=== PATIENT | female | born 1945 | race Caucasian/White ===

== ENCOUNTER → 2021-01-23 09:24 | Outpatient (BNVA) | payer MEDICARE, OTHER, SELFPAY | PROVIDERS: Referring Provider Family Medicine; Visit Provider Orthopaedic Surgery | DX: Z20.822 Contact with and (suspected) exposure to COVID-19 (principal); Z01.812 Encounter for preprocedural laboratory examination | CPT/HCPCS: 87635 ==

== ENCOUNTER 2021-01-28 12:31 | Day surgery (SDC) | payer MEDICARE, OTHER, SELFPAY ==
[2021-01-25 16:59] VITALS: BMI 23.3
[2021-01-28] VITALS (10 sets, daily range): BP systolic 179–186; BP diastolic 70–92; PULSE 68–95; RESP 14–18; TEMP 36.6–37.1; O2SAT 93–98
--- NOTE | 2021-01-28 | SCC_ITS ---
Procedure Done: Open reduction internal fixation left patella 19.3 seconds of fluoroscopic guidance, for a cumulative dose of 0.31 mGy, was provided to Dr. Foster by the radiology department. C-arm images of the LEFT patella were saved for the patient's permanent record. CRISSY
--- NOTE | 2021-01-28 13:51 | ECG_ITS ---
[facility] Test Date: 2021-01-28 Pat Name: Urvashi Watson Department: Room: Gender: Female Cath Laboratory Technician: : 1945 Requested By: Eugenio Olvera Order Number: [id number] Yanna MD: Mina Wen M.D. Measurements Intervals [place] Rate: 64 P: 30 CT: 127 QRS: 7 QRSD: 90 T: 37 QT: 426 QTc: 441 Interpretive Statements SINUS RHYTHM No previous ECG available for comparison Electronically Signed On 01-30-2021 0:16:58 FLIGHT CONTROL TOWER OPERATOR by Mina Wen M.D. [id number]
--- NOTE | 2021-01-28 13:57 | ANES.PREANE2 ---
Pre-Anesthetic Assessment Pre-Anesthetic Assessment: Height/Weight: Height 1.65 m Weight 63.503 kg Temp Pulse Resp BP Pulse Ox 97.9 F 68 18 184/92 97 01/28/21 13:22 01/28/21 13:22 01/28/21 13:22 01/28/21 13:22 01/28/21 13:22 Proposed Procedure: Operation Date: 01/28/21 14:05 Proposed Procedures p ORIF Patella 38607 S82.002A(Left) - Terrence Foster MD Was Beta Marisol taken within 24 hours: Yes Was Clonidine taken within 24 hours: N/A Last intake: Intake Last Liquid Date 01/28/21 Last Liquid Time 08:00 Last Solid Date 01/27/21 Last Solid Time 19:00 Social: Social History: No alcohol and No tobacco Exam: Pre-Anes Outpt Exam: alert, oriented x 3, clear to auscultation bilaterally and regular rate & rhythm Airway: Submandibular: WNL Cervical ROM: WNL MP: 2 Dentition: Full CV/HEM: CV/HEM: HTN Metabolic: Metabolic: DM and Hyperlipidemia Neuropsych: Neuropsych: Anxiety, Depression and TIA Anesthetic Plan: ASA status: 3 Anesthesia: General Other: PONV Risk of > 500 ml blood loss (7ml/kg in children): No PFSH Anesthesia PFSH: Social History Smoking and tobacco status: never smoked Alcohol intake: never Data Anesthesia Cardiac Studies: No Data to Display
[2021-01-28 14:01] LABS: Glucose Point of Care 249 mg/dL (70-110)
[2021-01-28] MEDS: scopolamine 1.5 Patch 1 PATCH TRANSDERMA (14:05)
[2021-01-28] MEDS: ondansetron 2 mg/ML SDV 2 mL 4 MG IVP ×2 (14:05→17:56)
[2021-01-28] MEDS: sodium chloride 0.9% 1,000 ML 30 ML IV (14:14)
[2021-01-28] MEDS: HYDROmorphone 1 mg/mL INJ 1 mL 0.5 MG IVP (14:15)
--- NOTE | 2021-01-28 15:51 | W.PM.OPSUD ---
Surgery/Procedure H&P Update DATE OF PROCEDURE: January 28, 2021 DATE H&P PERFORMED: 01/23/21 H&P UPDATE INFORMATION: I have reviewed H&P completed within last 30 days PREOP DIAGNOSIS: Fracture left patella PLANNED PROCEDURE: Operation Date: 01/28/21 14:05 Proposed Procedures p ORIF Patella 13183 S82.002A(Left) - Terrence Foster MD
--- NOTE | 2021-01-28 17:17 | P.OP_ITS ---
Operative Report Date of procedure: January 28, 2021 Pre-op Diagnosis: Fracture left patella Post-op diagnosis: same Post-op Findings: Same Procedure Done: Open reduction internal fixation left patella Implants: [place] 4.0mm canulated screws, 34 and 36mm Pathology: none sent Anesthesia: General Estimated blood loss (mL): 20 Complications: None Findings: The patient had a transverse fracture of the left patella Condition: stable Disposition: PACU Procedure: Urvashi was taken to the operating room and given 2 g of Ancef. She was prepped and draped in the supine position with her left leg covered with Ioban anteriorly. She had a small central scar over the patella so the incision was moved slightly laterally and made approximately 5 cm in length. The displaced patellar fracture was identified. Hematoma was moved from the fracture site. A reduction clamp was used to reduce the patella. 2 guide pins were placed from proximal to distal across the patella and a 36 and 34 mm 4.0 cannulated screw passed over each pin. A 5 FiberWire was then passed through each cannulated screw. It was passed in a crisscross fashion over the anterior patella and tightly secured performing the tension band. Next a 2 Artrhex Fiberforce suture was sutured circumferentially around the patella. The knee was brought through range of motion and the repair found to be stable. Deep tissues were closed with 2-0 Vicryl. The skin was closed with skin anastasiia. The anterior incision was covered with Xeroform and 4 x 4's. The leg was covered in compressive web roll and Cezar wrap and placed in a long knee immobilizer in extension. She was extubated taken to her room in stable con dition.
--- NOTE | 2021-01-28 17:25 | XR_ITS ---
WS: [id number] XR patella LT 1-2V 66109 REASON FOR EXAM: ORIF FRACTURE FINDINGS: Vertical screw fixation of transverse patellar fracture. Surgical appliances and fracture fragments appear in proper position and alignment. XR/XR patella LT 1-2V 31183 IMPRESSION: Fixation of patellar fracture with no abnormality.
--- NOTE | 2021-01-28 17:26 | P.PCN_ITS ---
Documented by User: Robson Bhagat CRNA 01/28/21 17:26 PACU note PACU note: VSS, Good respiratory effort, report to ETHYLENE PLANT OPERATOR Post-Anesthesia Exam: awake
--- NOTE | 2021-01-28 17:26 | PM.PACU ---
Documented by User: Robson Bhagat CRNA 01/28/21 17:26 PACU note PACU note: VSS, Good respiratory effort, report to RESEARCH DAIRY FARM SUPERVISOR Post-Anesthesia Exam: awake
[2021-01-28] MEDS: diphenhydrAMINE 50 mg/mL SDV 1mL 12.5 MG IVP (18:29)
--- NOTE | 2021-01-28 18:29 | SUR.PHASEII ---
RE MEDICATED FOR NAUSEA.
--- NOTE | 2021-01-28 18:38 | ANE.PACU2 ---
Inpatient post-anesthesia follow up: Airway intact: Yes Vital signs: Temperature 97.9 F Pulse Rate 87 Respiratory Rate 14 Blood Pressure 179/81 Pulse Oximetry 95 Oxygen Delivery Me thod Room Air Oxygen Flow Rate 10 Fraction of Inspir ed Oxygen Hydration adequate: Yes Nausea and vomiting: Yes Pain level: 2 Mental status: Baseline
--- NOTE | 2021-01-28 18:51 | SUR.PHASEII ---
RE EVALUATED BY DOCTOR SHAY. MODERATE RELIEF OF NAUSEA.
== END 2021-01-28 19:44 | disposition home or self-care (01) ==
PROVIDERS: PCP Internal Medicine Rheumatology; Visit Provider Orthopaedic Surgery
PROC: (CPT 27524; principal; 2021-01-28 13:55)
DX: S82.002A Unspecified fracture of left patella, initial encounter for closed fracture (principal); X58.XXXA Exposure to other specified factors, initial encounter; I10 Essential (primary) hypertension; E11.9 Type 2 diabetes mellitus without complications; E78.5 Hyperlipidemia, unspecified; F41.9 Anxiety disorder, unspecified; F32.9 Major depressive disorder, single episode, unspecified; Z86.73 Personal history of transient ischemic attack (TIA), and cerebral infarction without residual deficits
CPT/HCPCS: 27524; 36416; 73560; 76000; 82962; 93005; 96374; 96375; C1713; J0360; J0690; J1170; J1200; J2405; J2704; J3010; J3490; J7030

== ENCOUNTER → 2021-02-27 10:08 | Outpatient (BNVA) | payer MEDICARE, OTHER, SELFPAY | PROVIDERS: PCP Internal Medicine Rheumatology; Visit Provider Orthopaedic Surgery | DX: Z98.890 Other specified postprocedural states (principal) | CPT/HCPCS: 73560 ==

== ENCOUNTER → 2021-03-26 11:37 | Outpatient (BNVA) | payer MEDICARE, OTHER, SELFPAY | PROVIDERS: PCP Internal Medicine Rheumatology; Visit Provider Orthopaedic Surgery | DX: Z98.890 Other specified postprocedural states (principal) | CPT/HCPCS: 73560 ==

== ENCOUNTER 2021-04-25 06:00 | Outpatient (RCR) | payer MEDICARE, OTHER, SELFPAY | END 2021-05-16 23:59 | disposition home or self-care (01) | LOC: MPT 06:00 | PROVIDERS: Referring Provider Orthopaedic Surgery; Visit Provider Orthopaedic Surgery | DX: S82.002D Unspecified fracture of left patella, subsequent encounter for closed fracture with routine healing (principal); X58.XXXD Exposure to other specified factors, subsequent encounter | CPT/HCPCS: 97110; 97161 ==

== ENCOUNTER 2021-05-17 06:00 | Outpatient (RCR) | payer MEDICARE, OTHER, SELFPAY | END 2021-06-15 23:59 | disposition home or self-care (01) | LOC: MPT 06:00 | PROVIDERS: Referring Provider Orthopaedic Surgery; Visit Provider Orthopaedic Surgery | DX: S82.002D Unspecified fracture of left patella, subsequent encounter for closed fracture with routine healing (principal); X58.XXXD Exposure to other specified factors, subsequent encounter | CPT/HCPCS: 97110 ==

== ENCOUNTER → 2022-04-09 10:46 | Outpatient (BNVA) | payer MEDICARE, OTHER, SELFPAY | PROVIDERS: Visit Provider Orthopaedic Surgery | DX: Z98.890 Other specified postprocedural states (principal); M25.562 Pain in left knee; M54.16 Radiculopathy, lumbar region | CPT/HCPCS: 73560; 73565; 99213 ==

== ENCOUNTER → 2022-05-20 07:55 | Outpatient (BNVA) | payer MEDICARE, OTHER, SELFPAY | PROVIDERS: Visit Provider Physician Assistant | DX: M54.16 Radiculopathy, lumbar region (principal); M21.371 Foot drop, right foot | CPT/HCPCS: 72110; 99203 ==

== ENCOUNTER 2022-05-26 08:00 | Outpatient (CLI) | payer MEDICARE, OTHER, SELFPAY ==
--- NOTE | 2022-05-26 08:00 | MR_ITS ---
WS: [id number] MRI LUMBAR SPINE NONCONTRAST HISTORY: Right side foot drop COMPARISON: 09/09/2021 TECHNIQUE: Sagittal and axial multisequence imaging is submitted. The same numbering pattern of the vertebral bodies used on the prior MRI lumbar spine of 09/09/2021 vi ews today. Advanced degenerative changes in the cervical spine with mild encroachment on the central canal begin nevaeh at C4-C7. Additional facet disease in the mid to lower thoracic spine. No cord compression. Straightening of the normal lumbar lordosis. Mild curvature lumbar spine. L3 anterolisthesis by 4.3 mm. L4 anterolisthesis by 2.3 mm. Disc disease and the anterolisthesis has increased since the prior study. No fractures or marrow edema. Conus terminates normally at L1. L1-L2: Mild annular disc bulging and facet arthritis. Mild bilateral foraminal stenosis. No change. L2-L3: Marked annular disc bulging with marked ligamentum flavum and facet arthritis. Near complete e ffacement of CSF. Near complete effacement of fat in the LEFT foramen. Severe central, bilateral suba rticular recess and LEFT foraminal stenosis. Moderate RIGHT foraminal stenosis. Very similar to the p rior study. L3-L4: Marked annular disc bulging with severe ligamentum flavum and facet arthritis. Complete efface ment of fat in the RIGHT foramen. Severe RIGHT foraminal stenosis and moderate on the LEFT. Severe ce ntral and subarticular recess stenosis. Similar to the prior study. L4-L5: Marked annular disc bulging and ligamentum flavum and facet arthritis. Complete effacement of fat RIGHT foramen. Severe central, bilateral subarticular recess stenosis and RIGHT foraminal stenosi s. Moderate LEFT foraminal stenosis. Similar to the prior study. L5-S1: Mild disc bulging. Small central and LEFT foraminal disc protrusions. There is small disc prot rusion contacting the LEFT S1 nerve root. Similar to the prior study. Moderate central stenosis. Mild bilateral subarticular recess and foraminal stenosis. Most significant contact on the LEFT S1 nerve root. Paravertebral soft tissues are normal. MR/MR lumbar spine wo con* [id number] IMPRESSION: 1. Multilevel central and foraminal disc stenoses. 2. Mild anterolisthesis of L3 and L4 with mild progression since 09/09/2021. 3. Severe central, bilateral subarticular recess and LEFT foraminal stenosis a t L2-3. Moderate RIGHT foraminal stenosis. 4. Severe central, bilateral subarticular recess and RIGHT foraminal stenosis at L3-4. 5. Severe central, bilateral subarticular recess and RIGHT foraminal stenosis at L4-5 with moderate LEFT foraminal stenosis. 6. Moderate central stenosis at L5-S1. Mild bilateral subarticular recess and foraminal stenosis. There is a disc protrusion contacting the LEFT S1 nerve marie t which is unchanged.
== END 2022-05-26 08:01 | disposition home or self-care (01) ==
LOC: RAD 08:03
PROVIDERS: Visit Provider Physician Assistant
DX: M21.371 Foot drop, right foot (principal); M54.16 Radiculopathy, lumbar region; M43.16 Spondylolisthesis, lumbar region; M48.061 Spinal stenosis, lumbar region without neurogenic claudication
CPT/HCPCS: 72148

== ENCOUNTER → 2022-05-27 14:23 | Outpatient (BNVA) | payer MEDICARE, OTHER, SELFPAY | PROVIDERS: Visit Provider Physician Assistant | DX: M48.062 Spinal stenosis, lumbar region with neurogenic claudication (principal); M21.371 Foot drop, right foot; M54.16 Radiculopathy, lumbar region | CPT/HCPCS: 99213 ==

== ENCOUNTER 2022-06-06 13:15 | Outpatient (CLI) | payer MEDICARE, OTHER, SELFPAY | END 2022-06-06 13:16 | disposition home or self-care (01) | LOC: RT 06-25 13:16 | PROVIDERS: Visit Provider Orthopaedic Surgery | DX: Z01.818 Encounter for other preprocedural examination (principal) | CPT/HCPCS: 93005 ==

== ENCOUNTER 2022-06-13 05:49 | Day surgery (SDC) | payer MEDICARE, OTHER, SELFPAY ==
--- NOTE | 2022-06-06 09:56 | ANES.PREANE2 ---
Pre-Anesthetic Assessment Height/Weight: Height 1.65 m Weight 63.503 kg Operation Date: 06/13/22 08:50 Proposed Procedures p Lumbar Spine Decompression:L2/3 56032, L3/4 46242,L4/5 20508,M48.062,M21.371, M54.16(Right) - Juan Ortega DO Familial anesthetic complications: None Social No alcohol and No tobacco Exam alert, oriented x 3, clear to auscultation bilaterally and regular rate & rhythm Airway Mallampati: Class II Dentition: full CV/HEM Hypertension and Myocardial Infarction (3 years ago, no stents; able to achieve 4 METs) Metabolic Diabetes Mellitus and Hyperlipidemia Anesthetic Plan ASA status: 3 Anesthesia: General Risk of > 500 ml blood loss (7ml/kg in children): No Medications/Allergies Home Medications Medication Instructions Recorded Confirmed Last Taken Type glipizide 10 mg tablet 10 mg PO DAILY 01/23/21 06/06/22 06/06/22 History glipizide 5 mg tablet 5 mg PO QPM 01/23/21 06/06/22 06/06/22 History insulin NPH-regular 70-30 U-100 10 unit SUBCUT BID 01/23/21 06/06/22 06/06/22 History insulin 100 unit/mL subcutaneous pen (Novolin 70-30 FlexPen U-100 Insulin) losartan 50 mg tablet 50 mg PO DAILY 01/23/21 06/06/22 06/06/22 History metoprolol tartrate 25 mg tablet 25 mg PO DAILY 01/23/21 06/06/22 06/06/22 History rosuvastatin 40 mg tablet (Crestor) 40 mg PO DAILY 01/23/21 06/06/22 06/06/22 History Allergies Allergy/AdvReac Type Severity Reaction Status Date / Time propoxyphene [From Darvon] Allergy vomiting Verified 06/06/22 09:18 [facility] Anesthesia Social History Smoking and tobacco status: never smoked Alcohol intake: never Substance/Drug Use: never Data Anesthesia Cardiac Studies: No Data to Display
[2022-06-06 10:04] LABS: Basophils # 0.1 10^3/uL (0.0-0.1); Basophils % 0.6 %; Eosinophils # 0.3 10^3/uL (0.0-0.8); Eosinophils % 2.8 %; Hematocrit 45.4 % (37.0-47.0); Hemoglobin 14.7 g/dL (11.5-15.3); Lymphocytes # 1.9 10^3/uL (0.8-4.8); Lymphocytes % 20.1 %; Mean Corpuscular HGB Conc 32.4 g/dL (30.0-36.0); Mean Corpuscular Hemoglobin 28.4 pg (28.0-34.0); Mean Corpuscular Volume 87.8 fl (81-99); Mean Platelet Volume 9.4 fL (7.4-10.4); Monocytes % 10.7 %; Neutrophils # 6.33 10^3/uL (1.8-7.7); Neutrophils % 65.5 %; Nucleated Red Blood Cells % 0 %; Platelet Count 234 10^3/cmm (130-400); Red Blood Count 5.17 10^6/uL (4.1-5.3); Red Cell Distribution Width 14.6 % (12.1-15.1); White Blood Count 9.7 10^3/uL (4.0-10.0)
[2022-06-06 10:26] LABS: Anion Gap 15.4 (5-19); Blood Urea Nitrogen 21 mg/dL (8-23); Calcium 9.1 mg/dL (8.5-10.5); Carbon Dioxide 25 mmol/L (22-29); Chloride 104 mmol/L (98-107); Glucose 75 mg/dL (65-115); Osmolality Calculated 292 mOsm/kg (285-295); Potassium 4.4 mmol/L (3.5-5.1); Sodium 140 mmol/L (136-145)
[2022-06-06 10:27] LABS: Creatinine Clr Calc Pharmacy 36.9403
--- NOTE | 2022-06-06 11:23 | ECG_ITS ---
[facility] Test Date: 2022-06-06 Pat Name: Urvashi Watson Department: Room: Gender: Female Engineer Station Mainline: : 1945 Requested By: Amy Evans Order Number: [id number] Yanna MD: Mina Wen M.D. Measurements Intervals [place] Rate: 56 P: 52 WV: 120 QRS: -1 QRSD: 79 T: 38 QT: 411 QTc: 400 Interpretive Statements SINUS BRADYCARDIA INTERPRETATION BASED ON A DEFAULT AGE OF 40 YEARS Compared to ECG 01/28/2021 14:15:28 Sinus rhythm no longer present Electronically Signed On 06-06-2022 22:21:56 CDT by Mina Wen M.D. [id number] f
[2022-06-13] VITALS (10 sets, daily range): BP systolic 150–198; BP diastolic 69–103; PULSE 59–78; RESP 16–18; TEMP 36.2–36.3; O2SAT 92–100
[2022-06-13 06:18] LABS: Glucose Point of Care 123 mg/dL (70-110)
[2022-06-13] MEDS: sodium chloride 0.9% 1,000 ML 30 ML IV (06:24)
--- NOTE | 2022-06-13 06:59 | W.PM.OPSUD ---
Surgery/Procedure H&P Update DATE OF PROCEDURE: June 13, 2022 DATE H&P PERFORMED: 05/27/22 H&P UPDATE INFORMATION: I have reviewed H&P completed within last 30 days, I have examined patient prior to procedure and No changes to prior documentation PREOP DIAGNOSIS: Lumbar stenosis with neurogenic claudication, right foot drop PLANNED PROCEDURE: Operation Date: 06/13/22 07:00 Proposed Procedures p Lumbar Spine Decompression:L2/3 67650, L3/4 16767,L4/5 78363,M48.062,M21.371, M54.16(Right) - Juan Ortega DO
[2022-06-13] MEDS: ceFAZolin 2,000 MG in sodium chloride 0.9% (plus) 50 ML 100 MG IV (07:03)
--- NOTE | 2022-06-13 08:17 | P.ANESUD_ITS ---
Pre-Anesthetic Update Pre-Anesthetic Assessment: Date of Surgery/Procedure: 06/13/22 Preop Michelle gnosis: Lumbar stenosis with neurogenic claudication, right foot drop Proposed Procedure: Operation Date: 06/13/22 07:00 Proposed Procedures p Lumbar Spine Decompression:L2/3 81940, L3/4 04691,L4/5 94810,M48.062,M21.371, M54.16(Right) - Juan Ortega, DO Any changes to Pre-Anesthetic Assessment?: No Last Intake: Intake Last Liquid Date 06/12/22 Last Liquid Time 18:00 Last Solid Date 06/12/22 Last Solid Time 18:00 Vitals: Temperature 97.1 F L 06/13/22 06:23 Temperature Source Temporal Artery S can 06/13/22 06:23 Pulse Rate 59 L 06/13/22 06:23 Pulse Rhythm Regular 06/13/22 06:08 Pulse Strength 3+ Normal 06/13/22 06:08 Respiratory Rate 18 06/13/22 06:23 Blood Pressure 198/103 06/13/22 06:23 Blood Pressure Ronda n 134 06/13/22 06:23 Pulse Oximetry 98 06/13/22 06:23 Oxygen Delivery Me thod Room Air 06/13/22 06:23 Exam: Pre-Anes Outpt Exam: alert, oriented x 3, clear to auscultation bilaterally and regular rate & rhythm Cardiac Studies: No Data to Display
[2022-06-13] MEDS: lidocaine-epi 1% 20 mL INJ 10 ML INJECTION (08:28)
--- NOTE | 2022-06-13 09:06 | PM.OP ---
Operative Report Date of procedure: June 13, 2022 Pre-op diagnosis: Preop Diagnosis Lumbar stenosis with neurogenic claudication, right foot drop Post-op diagnosis: same Procedure done: 1. L2/3 laminectomy with partial facetectomy 2. L3/4 laminectomy with partial factectomy 3. L4/5 laminectomy with partial facetectomy Surgeon: Juan Ortega Extrusion Process Operator: Kip Multani Extrusion Process Operator: The operating room surgical technician, Kip Multani, PAC was needed for his expertise under the microscope. He was important and necessary throughout the procedure to complete in a safe and timely manner. He assisted with patient positioning prepping and draping tissue retraction suctioning of the operative field protection of the dural sac and tissue closure Estimated blood loss (mL): 50 Procedure: 1. L2/3 laminectomy with partial facetectomy 2. L3/4 laminectomy with partial factectomy 3. L4/5 laminectomy with partial facetectomy Patient is brought to the operative suite. After undergoing anesthesia they are placed in the prone position. All areas of impingement are well padded. Patient is then prepped and draped in the normal sterile fashion. A skin incision is made over the L2/3 level. This is confirmed under c-arm guidance. A series of dilators are passed and the tubular retractor is docked on the L2 lamina. A bovie is used to clear the soft tissue off the lamina and the L 2/3 facet joint. A high speed patrick is then used to perform the laminectomy and take down the medial aspect of the L 2/3 facet joint. A kerrison rongeure was then used to take down the remaining lamina and smooth the edge of the laminectomy up to the point where the ligamentum flavum attaches. Attention was then brought to the medial aspect of the facet joint. The remaining medial aspect of the superior and inferior aspect of the facet joint were taken down with the kerrison from the pedicle of L2 to L 3. The facet joint had significant hypertrophy. Attention was then brought to the Ligamentum Flavum. The ligament was taken down from the lamina of L2 to L3 and out medially to the remaining facet joint. The ligament was thick. The dura was then exposed. The dura was in good repair. The L2 nerve was then traced with a curette out the L2/3 foramen and found to be adequately decompressed. The L3 nerve was traced with a curette around the L3 pedicle. The lateral recess was opened with a kerrison helping to further decompress the L3 nerve. Wound is then irrigated copiously with saline and surgiflo is used to stop any bleeding. The tubular retractor is removed and the A skin incision is made over the L3/4 level. This is confirmed under c-arm guidance. A series of dilators are passed and the tubular retractor is docked on the L3 lamina. A bovie is used to clear the soft tissue off the lamina and the L 3/4 facet joint. A high speed patrick is then used to perform the laminectomy and take down the medial aspect of the L 3/4 facet joint. A kerrison rongeure was then used to take down the remaining lamina and smooth the edge of the laminectomy up to the point where the ligamentum flavum attaches. Attention was then brought to the medial aspect of the facet joint. The remaining medial aspect of the superior and inferior aspect of the facet joint were taken down with the kerrison from the pedicle of L3 to L 4. The facet joint had significant hypertrophy. Attention was then brought to the Ligamentum Flavum. The ligament was taken down from the lamina of L3 to L4 and out medially to the remaining facet joint. The ligament was thick. The dura was then exposed. The dura was in good repair. The L3 nerve was then traced with a curette out the L3/4 foramen and found to be adequately decompressed. The L4 nerve was traced with a curette around the L4 pedicle. The lateral recess was opened with a kerrison helping to further decompress the L4 nerve. Wound is then irrigated copiously with saline and surgiflo is used to stop any bleeding. The tubular retractor is removed and the A skin incision is made over the L4/5 level. This is confirmed under c-arm guidance. A series of dilators are passed and the tubular retractor is docked on the L4 lamina. A bovie is used to clear the soft tissue off the lamina and the L 4/5 facet joint. A high speed patrick is then used to perform the laminectomy and take down the medial aspect of the L 4/5 facet joint. A kerrison rongeure was then used to take down the remaining lamina and smooth the edge of the laminectomy up to the point where the ligamentum flavum attaches. Attention was then brought to the medial aspect of the facet joint. The remaining medial aspect of the superior and inferior aspect of the facet joint were taken down with the kerrison from the pedicle of L4 to L 5. The facet joint had significant hypertrophy. Attention was then brought to the Ligamentum Flavum. The ligament was taken down from the lamina of L4 to L5 and out medially to the remaining facet joint. The ligament was thick. The dura was then exposed. The dura was in good repair. The L4 nerve was then traced with a curette out the L4/5 foramen and found to be adequately decompressed. The L5 nerve was traced with a curette around the L5 pedicle. The lateral recess was opened with a kerrison helping to further decompress the L5 nerve. Wound is then irrigated copiously with saline and surgiflo is used to stop any bleeding. The tubular retractor is removed and the wound is closed with vicryl and monocryl suture. Glue is then used to protect the wound. A sterile dressing is then placed. Patient was then placed in the supine position and transferred to the PACU in stable condition.
[2022-06-13] MEDS: HYDROcodone-acetaminophen 5-325 mg Tablet 1 TAB PO (10:07)
[2022-06-13] MEDS: ondansetron 2 mg/ML SDV 2 mL 4 MG IVP (10:09)
--- NOTE | 2022-06-13 10:57 | XR_ITS ---
WS: [id number] Exam: XR lumbar spine 2-3V* [id number] Date/Time of Exam: 06/13/2022 10:57 AM Reason For Exam: OR PICS Limited anterior-posterior C-arm image of the lumbar spine is obtained for intraoperative purposes.
--- NOTE | 2022-06-13 11:32 | SUR.PHASEII ---
zofran 4mg 1 t po q6h prn #30 called into [facility] in [place] per dr das
--- NOTE | 2022-06-13 12:56 | ANE.PACU2 ---
Inpatient post-anesthesia follow up: Airway intact: Yes Vital signs: Temperature 97.3 F Pulse Rate 67 Respiratory Rate 18 Blood Pressure 150/69 Pulse Oximetry 94 Oxygen Delivery Me thod Room Air Oxygen Flow Rate 8 Fraction of Inspir ed Oxygen Hydration adequate: Yes Nausea and vomiting: No Pain level: 3 Mental status: Baseline
== END 2022-06-13 11:00 | disposition home or self-care (01) ==
PROVIDERS: Visit Provider Orthopaedic Surgery
PROC: (CPT 63005; principal; 2022-06-13 07:00)
DX: M48.062 Spinal stenosis, lumbar region with neurogenic claudication (principal); M21.371 Foot drop, right foot; E11.9 Type 2 diabetes mellitus without complications; I10 Essential (primary) hypertension; E78.5 Hyperlipidemia, unspecified; I25.2 Old myocardial infarction; Z79.4 Long term (current) use of insulin; Z79.84 Long term (current) use of oral hypoglycemic drugs; Z79.899 Other long term (current) drug therapy
CPT/HCPCS: 63047; 63048 ×2; 36415; 36416; 72020; 72100; 76000; 80048; 82962; 85025; J0690; J1100; J2405; J2704; J2710; J3010; J3490; J7030

== ENCOUNTER → 2022-06-26 08:29 | Outpatient (BNVA) | payer MEDICARE, OTHER, SELFPAY | PROVIDERS: Visit Provider Orthopaedic Surgery | DX: Z47.89 Encounter for other orthopedic aftercare (principal) | CPT/HCPCS: 99024 ==

== ENCOUNTER → 2022-12-23 11:28 | Outpatient (BNVA) | payer MEDICARE, OTHER, SELFPAY | PROVIDERS: Visit Provider Orthopaedic Surgery | DX: Z47.89 Encounter for other orthopedic aftercare (principal); M48.062 Spinal stenosis, lumbar region with neurogenic claudication; S32.039A Unspecified fracture of third lumbar vertebra, initial encounter for closed fracture; X58.XXXA Exposure to other specified factors, initial encounter | CPT/HCPCS: 72100; 99214 ==

== ENCOUNTER 2023-01-21 14:45 | Outpatient (CLI) | payer MEDICARE, OTHER, SELFPAY ==
--- NOTE | 2023-01-21 15:15 | MR_ITS ---
WS: [id number] MRI LUMBAR SPINE NONCONTRAST TECHNIQUE: Sagittal T1, T2 and STIR imaging. Axial T1 and T2 imaging. CLINICAL INFORMATION: lumbar pain COMPARISON: MRI 05/26/2022 FINDINGS: Concordant numbering convention is utilized as on the prior examinations. Mild lumbar curve. Stable acute to subacute compression fracture L2 superior endplate with edema and loss of approximately 20% vertebral body height. This is unchanged since the prior radiograph 12/24/19 23. Minimal retropulsion posterior superior cortex with moderate central canal stenosis and impingeme nt traversing L2 nerve roots bilaterally. Slight anterolisthesis L3 on L4 and L4 on L5 stable compar ed to previous. T12-L1: Shallow LEFT subarticular protrusion. Narrowing of the LEFT subarticular recess. Mild facet a rthropathy. Foramen are patent. L1-L2: Disc bulge with progressed moderate central canal stenosis. Mild RIGHT foraminal narrowing. Mi ld retropulsion L2 posterior cortex contributes to stenosis. L2-L3: Mild disc bulging with moderate central canal stenosis. Impingement on the traversing L3 nerve roots bilaterally. Moderate to advanced facet arthropathy. Moderate LEFT and mild RIGHT foraminal na rrowing. L3-L4: Slight anterolisthesis is stable. Severe central canal stenosis. Mild LEFT and moderate RIGHT foraminal narrowing. Moderate facet arthropathy. L4-L5: Slight anterolisthesis is stable. Mild central canal stenosis. Mild to moderate bilateral fora kate narrowing. Moderate facet arthropathy. L5-S1: LEFT paracentral disc protrusion impinges the LEFT S1 nerve root. This is similar compared to previous. Mild LEFT foraminal narrowing. RIGHT foramen is patent. Moderate facet arthropathy. Visualized pelvic bony structures: Normal. Paravertebral soft tissues: Normal. Mild to moderate central canal stenosis in the cervical spine on the math and science division chair imaging at C4-C7. IMPRESSION: 1. Recent compression superior plate L2 with edema and loss of approximate 20% vertebral body height . Minimal retropulsion the posterior superior cortex with moderate central canal stenosis at the L1-2 level. 2. Moderate central canal stenosis L2-3 and severe central canal stenosis L3-4 due to disc bulging w ith facet arthropathy and ligamentum flavum hypertrophy. This is similar to previous. 3. Mild central canal stenosis L4-5. 4. Central and LEFT paracentral disc protrusion L5-S1 impinges the traversing LEFT S1 nerve root in the subarticular recess. This is similar to previous. Slight involution of the disc material compared to previous. 5. Mild central canal stenosis T10-11 with a small central disc protrusion. 6. Multilevel mild to moderate foraminal narrowing described above.
== END 2023-01-21 14:46 | disposition home or self-care (01) ==
LOC: RAD 14:46
PROVIDERS: Visit Provider Orthopaedic Surgery
DX: M48.062 Spinal stenosis, lumbar region with neurogenic claudication (principal)
CPT/HCPCS: 72148

== ENCOUNTER → 2023-03-31 10:33 | Outpatient (BNVA) | payer MEDICARE, OTHER, SELFPAY | PROVIDERS: Visit Provider Orthopaedic Surgery | DX: M48.56XA Collapsed vertebra, not elsewhere classified, lumbar region, initial encounter for fracture (principal) | CPT/HCPCS: 72100; 99214 ==

== ENCOUNTER → 2024-06-21 08:22 | Outpatient (BNVA) | payer MEDICARE, OTHER, SELFPAY | PROVIDERS: PCP Nurse Practitioner Adult Health; Visit Provider Orthopaedic Surgery | DX: M48.062 Spinal stenosis, lumbar region with neurogenic claudication (principal) | CPT/HCPCS: 72110; 99213 ==